=== PATIENT | male | born 1980 | race Caucasian/White ===

== ENCOUNTER 2017-09-21 01:03 | Emergency (ER) | payer MEDICAID, OTHER ==
[2017-09-21 01:22] VITALS: PULSE 65; RESP 16; TEMP 98.2
[2017-09-21] MEDS ORDERED: PROPARACAINE 0.5% 15 ML OPHT DROP OP ONE (01:23)
[2017-09-21] MEDS ORDERED: FLUORESCEIN SODIUM 1 MG STRIP OP ONE (01:26)
[2017-09-21] MEDS ORDERED: OFLOXACIN 0.3% SOLN PREPACK OPHT.BTL TAKEHOME ONE (01:59)
--- NOTE | 2017-09-21 01:59 | EDPHY ---
H & P Stated Complaint: metal in eye R eye Time Seen by Provider: 09/21/17 01:23 MST HPI/ROS: HPI The patient presents with foreign body sensation in right eye which has been present since this evening. He was working with metal while wearing goggles but feel like some shards of the metal got into his hair. He was brushing his hair and then felt a foreign body sensation in his right eye which is associated with pain which is worse with blinking. It is moderate in severity. He has tearing of his eye but does not believe his vision is affected. REVIEW OF SYSTEMS Constitutional: No fever, no chills. Skin: No rashes. Neurological: No headache. PMHx: Healthy PHYSICAL General Appearance: Alert, no distress Eyes: Pupils equal and round no pallor or injection EYE EXAM Visual Acuity: noted from Nurse's notes. Pupils: equal round and reactive to light EOMI Skin: no proptosis, no periorbital erythema or swelling, no vesicles Conjunctivae: not injected, no discharge Cornea: Small, approximately 1 mm piece of metal within the cornea at approximately 6 o'clock overlying the iris, there is a surrounding rust ring Anterior chamber:normal, no hyphema or hypopyon ENT, Mouth: Mucous membranes moist Respiratory: Breathing comfortably Neurological: A&O, moves all extremities Psychiatric: Patient is oriented X 3, there is no agitation Source: Patient Exam Limitations: No limitations - Personal History Current Tetanus/Diphtheria Vaccine: No Current Tetanus Diphtheria and Acellular Pertussis (TDAP): No - Medical/Surgical History Hx Asthma: No Hx Chronic Respiratory Disease: No Hx Diabetes: No Hx Cardiac Disease: No Hx Renal Disease: No Hx Cirrhosis: No Hx Alcoholism: No Hx HIV/AIDS: No Hx Splenectomy or Spleen Trauma: No Other PMH: denies - Social History Smoking Status: Light smoker Constitutional: Initial Vital Signs Temperature (C) 36.8 C 09/21/17 01:20 MST Heart Rate 65 09/21/17 01:20 MST Respiratory Rate 16 09/21/17 01:20 MST Blood Pressure 143/75 H 09/21/17 01:20 MST O2 Sat (%) 96 09/21/17 01:20 MST O2 Delivery Mode Room Air Allergies/Adverse Reactions: Penicillins Allergy (Verified 09/21/17 01:19 MST) tetanus immune globulin Allergy (Verified 09/21/17 01:20 MST) Home Medications: Medication Instructions Recorded NK [No Known Home Meds] 09/21/17 Medical Decision Making Differential Diagnosis: 36-year-old male working with metal now with metallic foreign body in right eye within the cornea. The patient was given topical proparacaine drops for pain. While using the slit lamp and eye spud I was able to remove the metallic foreign body. Repeat examination with fluorescein shows a rust ring is present. He will need follow- up with Ophthalmology for this. I have explained this to him and will discharge him with antibiotic eyedrops to use for the violation of his cornea. Differential diagnoses include corneal abrasion, corneal foreign body, less likely iritis. - Data Points Medications Given: Discontinued Medications Ofloxacin (Ocuflox 0.3% Opht Drops Prepack) 1 btl TAKEHOME EDNOW ONE Stop: 09/21/17 02:00 Last Admin: 09/21/17 02:05 Dose: 1 btl Proparacaine HCl (Alcaine 0.5%) 1 drops OP EDNOW ONE Stop: 09/21/17 01:24 MST Last Admin: 09/21/17 01:29 MST Dose: 1 drop Departure - Departure Disposition: Home, Routine, Self-Care Clinical Impression: Foreign body, eye Qualifiers: Encounter type: initial encounter Corneal rust ring Qualifiers: Laterality: right Qualified Code(s): H18.891 - Other specified disorders of cornea, right eye Condition: Good Instructions: Ofloxacin (Into the eye), Eye Foreign Body (ED) Additional Instructions: Please use the antibiotic drops for the next 1 week. You should use ofloxacin 1 -2 drops 4 times daily for 1 week. You have what is called a rust ring in your eye, because of this, you need to follow up with the wash oil pump operator in the next 1-2 days. Please call the doctor listed below. Referrals: Kelsey Marshall MD [Non Staff Provider (MD)] - As per Instructions
[2017-09-21 02:13] VITALS: BP 142/68; O2SAT 98
== END 2017-09-21 02:12 | disposition home or self-care (01) ==
PROC: 08C8XZZ Extirpation of Matter from Right Cornea, External Approach (ICD-10-PCS; principal; 2017-09-21)
DX: T15.01XA Foreign body in cornea, right eye, initial encounter (principal); H18.891 Other specified disorders of cornea, right eye; F17.200 Nicotine dependence, unspecified, uncomplicated; X58.XXXA Exposure to other specified factors, initial encounter; Y99.8 Other external cause status